=== PATIENT | male | born 2000 | race Caucasian/White ===

== ENCOUNTER 2020-12-02 10:47 | Emergency (ER) | payer MEDICAID ==
[~2020-12-02] VITALS: Ht 177.8 cm; Wt 70.0 kg
[2020-12-02] MEDS ORDERED: ACETAMINOPHEN 500MG TABLET PO NR (11:15)
[2020-12-02] MEDS ORDERED: IBUPROFEN 800MG TABLET PO NR (11:15)
[2020-12-02] MEDS ORDERED: T3 PO (12:20)
[2020-12-02 12:59] VITALS: BP 127/78
== END 2020-12-02 13:01 | disposition home or self-care (01) ==
LOC: ER 10:47
DX: S62.397A Other fracture of fifth metacarpal bone, left hand, initial encounter for closed fracture (principal); Z98.890 Other specified postprocedural states; X58.XXXA Exposure to other specified factors, initial encounter; Y93.71 Activity, boxing; Y92.89 Other specified places as the place of occurrence of the external cause; Y99.8 Other external cause status
CPT/HCPCS: 29125; 73130; 99283

== ENCOUNTER 2020-12-24 23:48 | Emergency (ER) | payer SELFPAY ==
[~2020-12-24] VITALS: Ht 175.3 cm; Wt 66.0 kg
[~2020-12-24 23:48] MED LIST: T3 PO
[2020-12-25] MEDS ORDERED: IBUP-2029 PO (02:04)
[2020-12-25 02:22] VITALS: BP 135/66
== END 2020-12-25 02:25 | disposition home or self-care (01) ==
LOC: ER 23:48
DX: S00.83XA Contusion of other part of head, initial encounter (principal); S62.337A Displaced fracture of neck of fifth metacarpal bone, left hand, initial encounter for closed fracture; X58.XXXA Exposure to other specified factors, initial encounter; Y93.89 Activity, other specified; Y92.89 Other specified places as the place of occurrence of the external cause; Y99.8 Other external cause status
CPT/HCPCS: 99282

== ENCOUNTER 2021-04-15 05:18 | Emergency (ER) | payer MEDICAID ==
[~2021-04-15 05:18] MED LIST changes: +IBUP-2029 PO
== END 2021-04-15 09:00 | disposition left against medical advice (07) ==
LOC: ER 05:18
DX: Z53.21 Procedure and treatment not carried out due to patient leaving prior to being seen by health care provider (principal)